=== PATIENT | female | born 1990 | race Caucasian/White ===

== ENCOUNTER 2023-04-25 10:30 | Emergency (ER) | payer OTHER ==
[~2023-04-25] VITALS: Ht 157 cm; Wt 72.0 kg
[2023-04-25 11:00] LABS: BASOPHILS % (AUTO) 0 % (0-10); EOSINOPHILS # (AUTO) 0.2 10^3/uL (0.0-0.3); EOSINOPHILS % (AUTO) 2 % (0-10); HEMATOCRIT 43 % (35-52); HEMOGLOBIN 14.5 g/dL (11.5-16.0); LYMPHOCYTES # (AUTO) 2.5 10^3/uL (1.0-4.0); LYMPHOCYTES % (AUTO) 24 % (12-44); MEAN CORPUSCULAR HEMOGLOBIN 31 pg (25-34); MEAN CORPUSCULAR HGB CONC 34 g/dL (32-36); MEAN CORPUSCULAR VOLUME 92 fL (80-99); MEAN PLATELET VOLUME 10.6 fL (9.0-12.2); MONOCYTES # (AUTO) 0.7 10^3/uL (0.0-1.0); MONOCYTES % (AUTO) 7 % (0-12); NEUTROPHILS # (AUTO) 7.1 10^3/uL (1.8-7.8); NEUTROPHILS % (AUTO) 67 % (42-75); PLATELET COUNT 295 10^3/uL (130-400); WHITE BLOOD COUNT 10.6 10^3/uL (4.3-11.0)
--- NOTE | 2023-04-25 11:06 | ED General ---
General Chief Complaint: Abdominal/GI Problems Stated Complaint: HAND CRAMPING | VOMITING | FEVER Nursing Triage Note: PT AMB TO RM 9. PT STATES HAVING SPASMS IN HANDS BILATERALLY, PT STATES HAS HAD N/V LAST PM AND TODAY HAS BILATERAL HAND SPASMS. PT STATES HAS A SEIZURE HX AND TAKES KEPPRA. HAS BEEN NOT TAKEN KEPPRA SINCE FRIDAY. LAST SEIZURE WAS ON FRIDAY. STATES IS HAVING MEDS OVERNIGHTED FROM [place]. PT CO OF [place] AT THIS X, STATES MIGRAINE CAUSING BODY TO JERK LIKE A SEIZURE Source of Information: Patient Exam Limitations: No Limitations History of Present Illness Date Seen by Provider: Apr 25, 2023 Time Seen by Provider: 11:04 Initial Comments Patient is a 32-year-old female with a history of seizures who presents the ED with bilateral hand pain, cramping and spasming. She states this started today with her left hand spasming and has migrated to her right. She states her fist and hands feel tight. She states over the past 2 days she has had a generalized headache. She reports history of headaches and states this feels very similar. Rates pain 6 out of 10. Denies take anything for headache. She states she potentially had a seizure on Friday. She is out of her Keppra for the past month. She reports some drinking sensation since Friday. She states she has had vomiting yesterday with nausea over the past 2 days. She states she feels feverish, hot and warm. She is concern for fever. She denies of any runny nose, sore throat, ear pain, cough, chest pain, abdominal pain, diarrhea. No pain with urination but states she is frequently urinating. Denies any drug use or alcohol use. She states she is not from around here. She had to get her Keppra overnighted which she has not taken a dose of her Keppra. Allergies and Home Medications Allergies Coded Allergies: hydrocodone (Verified Allergy, Unknown, 04/25/23) trazodone (Verified Allergy, Unknown, 04/25/23) Uncoded Allergies: CODIENE (Allergy, Unknown, 04/25/23) Patient Home Medication List Home Medication List Reviewed: Yes Cephalexin (Cephalexin) 500 Mg Tablet, 500 MG PO BID Prescribed by: AUREA PETER on 04/25/23 6845 Review of Systems Review of Systems Constitutional: No chills, No diaphoresis, No fever, No malaise, No weakness EENTM: No ear pain, No blurred vision, No double vision Respiratory: No cough, No dyspnea on exertion, No hemoptysis, No orthopnea Cardiovascular: No chest pain, No edema Gastrointestinal: No abdominal pain, No constipation, No diarrhea; nausea, vomiting Genitourinary: No decreased output, No discharge, No dysuria; frequency Musculoskeletal: No back pain, No joint pain; muscle pain Skin: No change in color All Other Systems Reviewed Negative Unless Noted: Yes Past Zzfsytz-Mnmrqn-Yqppql Hx Patient Social History Tobacco Use?: Yes Tobacco type used: Cigarettes Smoking Status: Current Everyday Smoker Substance use?: No Alcohol Use?: Yes Alcohol type: Beer Alcohol Frequency: Once in a while Pt feels they are or have been: No Past Medical History Surgery/Hospitalization HX: , GB, TUBAL, SEIZURE HX Physical Exam Vital Signs Vital Signs - First Documented 04/25/23 04/25/23 10:40 13:07 Temp 36.5 Pulse 101 Resp 18 B/P (MAP) 142/113 (123) Pulse Ox 100 O2 Delivery Room Air Capillary Refill : Less Than 3 Seconds Height, Weight, BMI Height: '" Weight: lbs. oz. kg; 29.00 BMI Method: General Appearance: No Apparent Distress, WD/WN Eyes: Bilateral Eye Normal Inspection, Bilateral Eye PERRL, Bilateral Eye EOMI HEENT: PERRL/EOMI, TMs Normal, Normal ENT Inspection, Pharynx Normal Neck: Full Range of Motion, Normal Inspection, Non Tender, Supple Respiratory: Chest Non Tender, Lungs Clear, Normal Breath Sounds, No Accessory Muscle Use, No Respiratory Distress Cardiovascular: Regular Rate, Rhythm, No Edema, No Gallop, No JVD, No Murmur Gastrointestinal: Normal Bowel Sounds, No Organomegaly, No Pulsatile Mass, Non Tender Extremity: Normal Capillary Refill, Normal Inspection, Normal Range of Motion, Non Tender Neurologic/Psychiatric: Alert, Oriented x3, No Motor/Sensory Deficits, Normal Mood/Affect, midwife II-XII Norm as Tested Skin: Normal Color, Warm/Dry Progress/Results/Core Measures Suspected Sepsis SIRS Temperature: Pulse: 101 Respiratory Rate: 18 Laboratory Tests 04/25/23 10:40: White Blood Count 10.6 Blood Pressure 142 /113 Mean: 123 Laboratory Tests 04/25/23 10:40: Creatinine 0.87, Platelet Count 295, Total Bilirubin 0.4 Results/Orders Lab Results Laboratory Tests Test 04/25/23 10:40 04/25/23 11:14 Range/Units White Blood Count 10.6 4.3-11.0 10^3/uL Red Blood Count 4.64 3.80-5.11 10^6/uL Hemoglobin 14.5 11.5-16.0 g/dL Hematocrit 43 35-52 % Mean Corpuscular Volume 92 80-99 fL Mean Corpuscular Hemoglobin 31 25-34 pg Mean Corpuscular Hemoglobin Concent 34 32-36 g/dL Red Cell Distribution Width 12.8 10.0-14.5 % Platelet Count 295 130-400 10^3/uL Mean Platelet Volume 10.6 9.0-12.2 fL Immature Granulocyte % (Auto) 0 % Neutrophils (%) (Auto) 67 42-75 % Lymphocytes (%) (Auto) 24 12-44 % Monocytes (%) (Auto) 7 0-12 % Eosinophils (%) (Auto) 2 0-10 % Basophils (%) (Auto) 0 0-10 % Neutrophils # (Auto) 7.1 1.8-7.8 10^3/uL Lymphocytes # (Auto) 2.5 1.0-4.0 10^3/uL Monocytes # (Auto) 0.7 0.0-1.0 10^3/uL Eosinophils # (Auto) 0.2 0.0-0.3 10^3/uL Basophils # (Auto) 0.0 0.0-0.1 10^3/uL Immature Granulocyte # (Auto) 0.0 0.0-0.1 10^3/uL Sodium Level 142 135-145 MMOL/L Potassium Level 3.1 L 3.6-5.0 MMOL/L Chloride Level 107 98-107 MMOL/L Carbon Dioxide Level 24 21-32 MMOL/L Anion Gap 11 5-14 MMOL/L Blood Urea Nitrogen 6 L 7-18 MG/DL Creatinine 0.87 0.60-1.30 MG/DL Estimat Glomerular Filtration Rate 90 BUN/Creatinine Ratio 7 Glucose Level 104 70-105 MG/DL Calcium Level 9.5 8.5-10.1 MG/DL Corrected Calcium 9.3 8.5-10.1 MG/DL Magnesium Level 2.0 1.6-2.4 MG/DL Total Bilirubin 0.4 0.1-1.0 MG/DL Aspartate Amino Transf (AST/SGOT) 26 5-34 U/L Alanine Aminotransferase (ALT/SGPT) 24 0-55 U/L Alkaline Phosphatase 63 40-136 U/L Total Creatine Kinase 82 29-168 U/L Troponin I < 0.028 <0.028 NG/ML Total Protein 7.4 6.4-8.2 GM/DL Albumin 4.3 3.2-4.5 GM/DL Lipase 33 8-78 U/L Urine Color YELLOW Urine Clarity CLOUDY Urine pH 8.0 5-9 Urine Specific [place] 1.015 L 1.016-1.022 Urine Protein 1+ H NEGATIVE Urine Glucose (UA) NEGATIVE NEGATIVE Urine Ketones NEGATIVE NEGATIVE Urine Nitrite NEGATIVE NEGATIVE Urine Bilirubin 1+ H NEGATIVE Urine Urobilinogen 1.0 < = 1.0 MG/DL Urine Leukocyte Esterase 1+ H NEGATIVE Urine RBC (Auto) NEGATIVE NEGATIVE Urine RBC NONE /HPF Urine WBC 5-10 H /HPF Urine Squamous Epithelial Cells 5-10 /HPF Urine Crystals NONE /LPF Urine Bacteria FEW H /HPF Urine Casts NONE /LPF Urine Mucus SMALL H /LPF Urine Culture Indicated YES Urine Test NEGATIVE NEGATIVE Urine Opiates Screen NEGATIVE NEGATIVE Urine Oxycodone Screen NEGATIVE NEGATIVE Urine Methadone Screen NEGATIVE NEGATIVE Urine Propoxyphene Screen NEGATIVE NEGATIVE Urine Barbiturates Screen NEGATIVE NEGATIVE Ur Tricyclic Antidepressants Screen NEGATIVE NEGATIVE Urine Phencyclidine Screen NEGATIVE NEGATIVE Urine Amphetamines Screen NEGATIVE NEGATIVE Urine Methamphetamines Screen NEGATIVE NEGATIVE Urine Benzodiazepines Screen NEGATIVE NEGATIVE Urine Cocaine Screen NEGATIVE NEGATIVE Urine Cannabinoids Screen NEGATIVE NEGATIVE My Orders Orders - ARCADIO CASPER Cbc With Automated Diff (04/25/23 10:55) Comprehensive Metabolic Panel (04/25/23 10:55) Lipase (04/25/23 10:55) Magnesium (04/25/23 10:55) Iv/Invasive Line Insertion .IV INSERT (04/25/23 10:55) Levetiracetam Tablet (Keppra Tablet) (04/25/23 11:15) Drug Screen Stat (Urine) (04/25/23 11:03) Ua Culture If Indicated (04/25/23 11:03) Hcg,Qualitative Urine (04/25/23 11:04) Ketorolac Injection (Toradol Injection) (04/25/23 11:15) Ns Iv 1000 Ml (Sodium Chloride 0.9%) (04/25/23 11:08) Creatine Kinase (04/25/23 11:22) Urine Culture (04/25/23 11:14) Ekg Tracing (04/25/23 12:14) Troponin I [place] (04/25/23 12:14) Potassium Chloride (Tablet) (K Dur Table (04/25/23 12:15) Medications Given in ED Current Medications Medications Dose Ordered Sig/Todd Route Start Time Stop Time Status Last Admin Dose Admin Ketorolac Tromethamine 30 mg ONCE ONCE IVP 04/25/23 11:15 04/25/23 11:16 DC 04/25/23 11:15 30 MG Levetiracetam 500 mg ONCE ONCE PO 04/25/23 11:15 04/25/23 11:16 DC 04/25/23 11:14 500 MG Potassium Chloride 20 meq ONCE ONCE PO 04/25/23 12:15 04/25/23 12:16 DC 04/25/23 12:22 20 MEQ Vital Signs/I&O 04/25/23 04/25/23 10:40 13:07 Temp 36.5 Pulse 101 90 Resp 18 16 B/P (MAP) 142/113 (123) 136/82 Pulse Ox 100 98 O2 Delivery Room Air Capillary Refill : Less Than 3 Seconds Blood Pressure Mean: 123 ECG Comment Sinus rhythm, 76 bpm, QRS duration 88 MS, QTc 395 MS. Departure Communication (PCP) Patient presents the ED for muscle spasming, hand cramping, not feeling well feeling feverish. History of seizures. Has been out of her Keppra for at least a month. Typically lives in [place]. She states her significant other is overnight her keppra and will be here tomorrow. She states she feels dehydrated. Frequent urination. No specific abdominal pain. Few episodes of vomiting yesterday with headache for the past 2 days. Similar type headache denies worst headache of her life. She has no focal neural deficits, facial droop, unilateral weakness or sensory changes. No history of coronary arteries, stroke. Differential diagnosis, dehydration, rhabdo, viral syndrome, UTI, electrolyte abnormality. CBC, CMP, lipase, CPK was ordered. Started on a liter of fluid. Received Zofran and Toradol for nausea and headache. Patient headache improved. CBC, CMP was grossly unremarkable. Potassium 3.1. Did receive oral potassium 20 mill equivalent. she started developing chest pain here. EKG was obtained which showed normal sinus rhythm. No evidence of arrhythmia, ST elevation or depression. normal troponin. Denies history of ACS. No recent travels or surgeries. She does not appear toxic or septic. Urinalysis concern for UTI. Will discharge with Keflex. patient was requesting be discharged. She states she is feeling much better. She had no neurological red flag findings warranting CT scan of the head. No evidence of seizure-like activity. She did receive Keppra 500 mg here for her morning dose. No evidence of seizure-like activity. Normal range of motion of all of all extremities. If any worsening symptoms return back to ED for further evaluation. Follow-up with your PCP in 2 to 3 days for reevaluation. Impression Primary Impression: Urinary tract infection Disposition: 01 HOME, SELF-CARE Condition: Stable Departure-Patient Inst. Decision time for Depature: 12:14 Referrals: [facility] [place],LOCAL PHYSICIAN (PCP) Primary Care Physician Patient Instructions: Urinary Tract Infection, Adult (DC) Scripts Cephalexin (Cephalexin) 500 Mg Tablet 500 MG PO BID for 7 Days, #14 TAB Prov: ARCADIO CASPER 04/25/23 ARCADIO CASPER Apr 25, 2023 11:06
[2023-04-25] MEDS ORDERED: NS IV 1000 ML 1,000 ML IV STA (11:08)
[2023-04-25 11:12] LABS: ALBUMIN 4.3 GM/DL (3.2-4.5); POTASSIUM 3.1 MMOL/L (3.6-5.0)
[2023-04-25 11:13] LABS: CALCIUM 9.5 MG/DL (8.5-10.1)
[2023-04-25 11:14] LABS: TOTAL PROTEIN 7.4 GM/DL (6.4-8.2)
[2023-04-25] MEDS ORDERED: KETOROLAC 30 MG/ML VIAL IVP ONE (11:15)
[2023-04-25 11:16] LABS: BILIRUBIN,TOTAL 0.4 MG/DL (0.1-1.0)
[2023-04-25 11:18] LABS: CREATININE SERUM 0.87 MG/DL (0.60-1.30)
[2023-04-25 11:20] LABS: CLARITY,URINE CLOUDY; COLOR,URINE YELLOW; GLUCOSE, URINE (UA) NEGATIVE (NEGATIVE); KETONES,URINE NEGATIVE (NEGATIVE); LEUKOCYTE ESTERASE ,URINE 1+ (NEGATIVE); NITRITE,URINE NEGATIVE (NEGATIVE); PROTEIN,URINE 1+ (NEGATIVE)
[2023-04-25 11:22] LABS: HCG,QUALITATIVE URINE NEGATIVE (NEGATIVE)
[2023-04-25 11:28] LABS: BACTERIA,URINE FEW /HPF; BILIRUBIN,URINE 1+ (NEGATIVE)
[2023-04-25 11:30] LABS: AMPHETAMINE SCREEN, URINE NEGATIVE (NEGATIVE); BARBITURATE SCREEN URINE NEGATIVE (NEGATIVE); BENZODIAZEPINES SCREEN URINE NEGATIVE (NEGATIVE); CANNABINOID SCREEN, URINE NEGATIVE (NEGATIVE); COCAINE SCREEN URINE NEGATIVE (NEGATIVE); METHADONE STAT NEGATIVE (NEGATIVE); OPIATE SCREEN URINE NEGATIVE (NEGATIVE); OXYCODONE STAT NEGATIVE (NEGATIVE); PROPOXYPHENE STAT NEGATIVE (NEGATIVE); TRICYCLIC ANTIDEPRESSANTS SCRE NEGATIVE (NEGATIVE)
[2023-04-25] MEDS ORDERED: CEPH500T PO (12:15)
[2023-04-25] MEDS ORDERED: KCL 20 MEQ TAB (K-DUR) PO ONE (12:15)
[2023-04-25 13:07] VITALS: BP 136/82
== END 2023-04-25 13:07 | disposition home or self-care (01) ==
LOC: ER 10:33
DX: N39.0 Urinary tract infection, site not specified (principal); R11.2 Nausea with vomiting, unspecified; R51.9 Headache, unspecified; G40.909 Epilepsy, unspecified, not intractable, without status epilepticus; T42.6X6A Underdosing of other antiepileptic and sedative-hypnotic drugs, initial encounter; F17.210 Nicotine dependence, cigarettes, uncomplicated; Z79.899 Other long term (current) drug therapy; Z91.128 Patient's intentional underdosing of medication regimen for other reason
CPT/HCPCS: 36415; 80053; 80306; 81000; 82550; 83690; 83735; 84484; 84703; 85025; 87088; 93005